=== PATIENT | female | born 1970 | race Two or more races ===

== ENCOUNTER 2024-10-15 20:46 | Emergency (ER) | payer MEDICAID, SELFPAY ==
[2024-10-15 21:54] VITALS: BP 109/72; PULSE 98; RESP 18; TEMP 36.9; O2SAT 98
--- NOTE | 2024-10-15 22:08 | XR_ITS ---
Examination: CT abdomen and pelvis without contrast. Coronal 3-D reconstructions. Sagittal 2-D reconstructions. Date and time of exam:October 15, 2024 at 11:18 PM Indications: Abdominal pain beginning 2 months ago worse the last 2 days CTDI: vol (mGy): 8.40 DLP: (mGycm): 425 Technique: Axial images of the abdomen have been obtained, 3 mm slice thickness Intravenous contrast material has not been administered. Low dose protocols were performed. One or more of the following dose reduction techniques were used; automated exposure control, adjustment of the mA and/or KV according to patient size, use of iterative reconstruction technique. Findings: No focal liver or splenic lesion Absent gallbladder No pancreatic or adrenal mass No renal or ureteral calculi, no hydronephrosis No pericecal inflammatory change No bowel obstruction or diverticulitis Anteverted uterus Urinary bladder intact Moderate osteopenia Impression: No renal or ureteral calculi, no hydronephrosis Absent gallbladder No CT findings of bowel obstruction appendicitis or diverticulitis
--- NOTE | 2024-10-15 22:09 | PD.EDRME ---
Rapid Medical Screening Exam RME Arrival date/time: 10/15/24 20:46 53-year-old female presents emergency department complaining of diffuse abdominal pain with nausea. Chief Complaint: Abdominal Pain Time Seen by Provider: 10/15/24 21:14 Vital signs: Vital Signs Temperature 98.5 F 10/15/24 21:54 Pulse Rate 98 10/15/24 21:54 Respiratory Rate 18 10/15/24 21:54 Blood Pressure 109/72 10/15/24 21:54 Pulse Oximetry (%) 98 10/15/24 21:54 Oxygen Delivery Method Room Air 10/15/24 21:54 Vital signs reviewed by provider: Yes
[2024-10-15 22:41] LABS: Collection Type, Urine Clean Catch
[2024-10-15] MEDS: ONDANSETRON ODT 4 MG TABRAP PO (22:43)
[2024-10-15] MEDS: KETOROLAC INJ 60 MG/2 ML VIAL 30 MG IM (22:43)
[2024-10-15 23:00] LABS: Basophils % (Auto) 0 % (0-2.5); Eosinophils # (Auto) 0.1 Thou/mm3 (0.0-0.5); Eosinophils % (Auto) 1 % (0-10); Hematocrit 38.9 % (36.0-46.0); Hemoglobin 12.9 g/dL (12.0-16.0); Immature Granulocytes % (Auto) 0 % (0-0); Immature Granulocytes Auto 0.05 Thou/mm3 (0.00-0.00); Lymphocytes # (Auto) 1.1 Thou/mm3 (1.0-4.8); Lymphocytes % (Auto) 8 % (10-50); Mean Corpuscular HGB Conc 33.2 g/dl (31.0-37.0); Mean Corpuscular Volume 85 fL (80-100); Monocytes # (Auto) 0.8 Thou/mm3 (0.0-0.8); Monocytes % (Auto) 6 % (0-12); Neutrophils # (Auto) 11.3 Thou/mm3 (1.8-7.7); Neutrophils % (Auto) 85 % (37-80); Nucleated Red Blood Cell % 0 /100 WBC (0); Platelet Count 275 Thou/mm3 (140-440); RDW Standard Deviation 42.9 fL (36.4-46.3); White Blood Count 13.3 Thou/mm3 (3.6-11.0)
[2024-10-15 23:05] LABS: Alanine Aminotransferase 33 U/L (10-49); Albumin, Serum 4.5 gm/dL (3.5-5.0); Anion Gap 11 (7-16); Aspartate Amino Transferase 68 U/L (0-34); BUN/Creatinine Ratio 25 Ratio (12-20); Bilirubin,Total 0.5 mg/dL (0.3-1.2); Blood Urea Nitrogen 20 mg/dL (9-23); Calcium 9.2 mg/dL (8.3-10.6); Carbon Dioxide 27.1 mMol/L (20.0-31.0); Chloride 100 mMol/L (98-107); Creatinine (Component) 0.8 mg/dL (0.6-1.3); Glucose 230 mg/dL (74-106); Osmolality,Calculated 285 (275-295); Potassium 3.7 mMol/L (3.4-5.1); Sodium 138 mMol/L (136-145); Total Protein 7.4 gm/dL (5.7-8.2); eGFR > 60 See Note
[2024-10-15 23:06] LABS: Albumin/Globulin Ratio 1.6 (1.2-2.2); Calcium (Corrected) 9.2 mg/dL (8.5-10.1); Globulin 2.9 gm/dL (2.3-3.5); Lipase 38 U/L (12-53)
[2024-10-15 23:07] LABS: Bacteria,Urine Rare; Bilirubin,Urine Negative (Negative); Blood,Urine Negative (Negative); Clarity,Urine Clear (Clear/Hazy); Color,Urine Lt-Yellow (Lt Yel-Yel); Culture Indicated,Urine Not Indicated; Glucose, Urine 4+ (Negative); Ketones,Urine 1+ (Negative); Leukocyte Esterase,Urine Positive (Negative); Nitrite,Urine Negative (Negative); Protein,Urine Negative (Neg - Trace); RBC,Urine 4 /hpf (0-3); Specific Gravity,Urine 1.036 (1.001-1.035); Squamous Epithelial Cell,Urine < 1 /hpf (0-5); WBC,Urine 8 /hpf (0-5)
[2024-10-15 23:20] LABS: Alkaline Phosphatase 142 U/L (46-116)
--- NOTE | 2024-10-15 23:57 | EDNOTE_ITS ---
<Statement entered by Lisa Kim MD - 10/16/24 02:17> As co-signing physician, I was present and available for consult prn. I concur with the plan and care as documented by the midlevel provider. ED Abdominal Pain RME/HPI General Chief Complaint: Abdominal Pain Stated complaint: UPPER ABDOMINAL PAIN Time seen by provider: 10/15/24 21:14 Arrival date/time: 10/15/24 20:46 53-year-old female past medical history of cholecystectomy presents emergency department complaining of diffuse abdominal pain with nausea that is been ongoing for 2 months. Patient denies any fever, chills, vomiting, diarrhea, or any other associated symptom. Limitations: no limitations RME / HPI RME / HPI narrative: 10/15/24 20:46 53-year-old female presents emergency department complaining of diffuse a bdominal pain with nausea. Related Data Home Medications ?Medication ?Instructions ?Recorded ?Confirmed Levothyroxine * (SYNTHROID *) 100 mcg PO ACBR THYROID #0 tabs 05/03/15 metformin 850 mg tablet 850 mg PO BID DIABETES #0 ta bs 05/03/15 (Glucophage) Previous Rx's ?Medication ?Instructions ?Recorded Hydrocodone/Acetaminophen * (NORCO 1 tab PO Q6H PRN pa in #15 tabs 10/09/15 5/325 *) lisinopril 5 mg tablet 5 mg PO QDAY #30 tabs cyclobenzaprine 10 mg tablet 10 mg PO Q8H muscle pain #20 tabs 10/08/22 ibuprofen 600 mg tablet 600 mg PO Q6H PRN pain #30 t abs 10/08/22 lidocaine 5 % topical patch 1 patch topical QDAY PRN p ain #15 10/08/22 ea albuterol sulfate 90 mcg/actuation 2 puff inhalation Q 6H PRN 06/23/23 aerosol inhaler (Ventolin HFA) shortness of breath or wheezing #8.5 grams amoxicillin 875 mg-potassium 1 tab PO Q12H #14 tabs clavulanate 125 mg tablet ferrous sulfate 325 mg (65 mg 325 mg PO QDAY #30 tabs 06/23/23 iron) tablet loratadine 10 mg tablet 10 mg PO QDAY #30 tabs 06/23 promethazine-DM 6.25 mg-15 mg/5 mL 5 ml PO Q6H PRN cou gh #118 mL 06/23/23 oral syrup ibuprofen 600 mg tablet 600 mg PO Q8H PRN pain #20 t abs 10/15/24 ondansetron 4 mg disintegrating 4 mg PO Q8H PRN nausea and 10/15/24 tablet vomiting #10 tabs cephalexin 500 mg capsule 500 mg PO BID 5 days #10 cap s 10/16/24 Allergies Allergy/AdvReac Type Severity Reaction Status Date / Time No Known Allergies Allergy Verified 06/23/23 14:42 Review of Systems Review of Systems Systems Reviewed: All systems reviewed, normal except as documented Constitutional Constitutional: Reports system reviewed and no additional complaints, except as documented, Denies body ache(s), Denies chills and Denies fever(s) Eyes Eyes: Reports system reviewed and no additional complaints, except as documented and Denies change in vision ENT Ears, Nose, Mouth, and Throat: Reports system reviewed and no additional complaints, except as documented, Denies disequilibrium, Denies dizziness, Denies sore throat and Denies vertigo Cardiovascular Cardiovascular: Reports system reviewed and no additional complaints, except as documented, Denies chest pain and Denies dyspnea Respiratory Respiratory: Reports system reviewed and no additional complaints, except as d ocumented, Denies chest congestion, Denies cough and Denies dyspnea Gastrointestinal Gastrointestinal: Reports system reviewed and no additional complaints, except as documented, Reports abdominal pain, Reports nausea and Denies vomiting Musculoskeletal Musculoskeletal: Reports system reviewed and no additional complaints, except as documented, Denies abnormal gait and Denies arthralgias Integumentary/Breasts Skin/Breast: Reports system reviewed and no additional complaints, except as documented, Denies erythema, Denies rash and Denies wounds Neurologic Neurologic: Reports system reviewed and no additional complaints, except as documented, Denies abnormal gait, Denies disequilibrium, Denies dizziness and Denies vertigo Past Medical History Past Medical History CARDIAC: Positive Hypertension ENDOCRINE: Positive Diabetes Mellitus Type 2 and Hypothyroidism Social History SMOKING STATUS: Never smoker SUBSTANCE USE: does not use ED Exam General Limitations: Present no limitations General appearance: Present alert and in no apparent distress Head Head exam: Present atraumatic Eye Eye exam: Present normal appearance, PERRL and EOMI ENT ENT exam: Present normal exam, normal oropharynx and mucous membranes moist Neck Neck exam: Present normal inspection, full ROM and trachea midline Chest Chest inspection: Present normal inspection and symmetric chest wall rise Respiratory Respiratory exam: Present normal lung sounds bilaterally Cardiovascular Cardiovascular exam: Present regular rate, normal rhythm and normal heart sounds Abdominal Exam Abdominal exam: Present soft and normal bowel sounds; Absent Tatum's sign or tenderness at McBurney's Point Extremities Exam Extremities exam: Present normal inspection and full ROM Back Exam Back exam: Present normal inspection and full ROM Neurological Exam Neurological exam: Present alert, oriented X3 and CN II-XII intact Psychiatric Psychiatric exam: Present normal affect and normal mood Skin Skin exam: Present warm, dry, intact and normal color Course Quality Measures none Orders Category Date Time Status CT abdomen pelvis wo con Stat Exams 10/15/24 22:08 Completed CBC Stat Lab 10/15/24 22:21 Completed CMP [Comprehensive Metabolic Panel] Stat Lab 10/15/24 22:21 Completed Lipase Stat Lab 10/15/24 22:21 Completed Urinalysis, C/S if Indicated Stat Lab 10/15/24 22:30 Completed Ketorolac Inj [Toradol Inj] Med 10/15/24 22:09 Discontinued 30 mg IM X1 ONE Ondansetron Odt [Zofran Odt] Med 10/15/24 22:09 Discontinued 4 mg PO X1 ONE cefTRIAXone [Rocephin] 1,000 mg Med 10/15/24 23:57 Discontinued Lidocaine 1% 20 ml [Xylocaine 1% 20 ML] 2.1 ml IM X1 Vital Signs Vital signs: Vital Signs Temperature 98.5 F 10/15/24 21:54 Pulse Rate 98 10/15/24 21:54 Respiratory Rate 18 10/15/24 21:54 Blood Pressure 109/72 10/15/24 21:54 Pulse Oximetry (%) 98 10/15/24 21:54 Oxygen Delivery Method Room Air 10/15/24 21:54 98% room air within normal limits Abdominal Pain MDM MDM Narrative MDM Narrative:: 53-year-old female past medical history of cholecystectomy presents emergency department complaining of diffuse abdominal pain with nausea that is been ongoing for 2 months. Patient denies any fever, chills, vomiting, diarrhea, or any other associated symptom. CBC mild leukocytosis 13.3. CMP was unremarkable other than mild elevation of AST 68 and alkaline phos 142 with normal lipase. Urinalysis positive for leukocytes, WBCs, and RBCs. No costovertebral tenderness. CT abdomen pelvis was unremarkable. Patient reports significant improvement in pain after given pain medication. Patient did not have any episodes of vomiting. Patient treated for UTI with antibiotics. Patient stable for discharge instructed to have close follow-up with primary care provider return immediately to emergency department for any worsening symptoms or as needed. Patient data External records reviewed:: [facility] previous records Clinical information provided by:: patient Social determinants that could affect healthcare access:: none Patient has the following chronic illnesses:: See chart How is presenting disease/condition affected by chronic disease/condition?: uneffected by Evaluation data The following diagnostics were reviewed and interpreted by me:: lab results and radiology exam(s) Lab and/or radiology exams considered but not ordered:: Ordered Interpretation Summary: Interpreted by me Medications / Prescriptions Medications or Prescriptions considered but not ordered:: Ordered Medication administrations:: Medication Administration History Discontinued Medications Ceftriaxone Sodium 1,000 mg/ (Lidocaine HCl 2.1 ml) 0 mg IM X1 ONE Stop: 10/15/24 23:58 Last Admin: 10/16/24 00:07 Dose: 1,000 mg Documented By: AYE Comments: 2.1 ml lidocaine Ketorolac Tromethamine (Ketorolac Inj 60 Mg/2 Ml Vial) 30 mg IM X1 ONE Stop: 10/15/24 22:10 Last Admin: 10/15/24 22:43 Dose: 30 mg Documented By: AYE Ondansetron HCl (Ondansetron Odt 4 Mg Tabrap) 4 mg PO X1 ONE; Protocol Stop: 10/15/24 22:10 Last Admin: 10/15/24 22:43 Dose: 4 mg Documented By: AYE Given Consultations Consultation(s) initiated? (list below): No Diagnosis Differential diagnosis abdominal pain: abdominal pain, acute appendicitis, calculus of kidney, constipation, diverticulitis, endometriosis, gastroenteritis, pancreatitis and small bowel obstruction Most likely diagnosis given after review of the tests above:: UTI Admission Indicated Admission indicated?: not indicated Admission Request Was there a request for admission?: No Disposition Plan Disposition Plan: Discharge Discharge Attestation Discharge Attestation: The patient and all family members were given an opportunity to ask questions and understood the discharge instructions. Discharge instructions specifically effects, indications for sooner follow up or return to the emergency department, and the expected course of current diagnosis. Patient condition: Stable Discharge Plan Plan Patient Disposition: HOME (Self Care) Disposition Comment: Stable Prescriptions/Referrals Prescriptions/Med Rec: New ibuprofen 600 mg tablet 600 mg PO Q8H PRN (Reason: pain) Qty: 20 0RF ondansetron 4 mg tablet,disintegrating 4 mg PO Q8H PRN (Reason: nausea and vomiting) Qty: 10 0RF cephalexin 500 mg capsule 500 mg PO BID 5 Days Qty: 10 0RF No Action metformin [Glucophage] 850 MG tablet 850 mg PO BID Qty: 0 Levothyroxine * (SYNTHROID *) 100 MCG tablet 100 mcg PO ACBR Qty: 0 Hydrocodone/Acetaminophen * (NORCO 5/325 *) 1 TAB tablet 1 tab PO Q6H PRN (Reason: pain) Qty: 15 0RF lisinopril 5 MG tablet 5 mg PO QDAY Qty: 30 0RF ibuprofen 600 mg tablet 600 mg PO Q6H PRN (Reason: pain) Qty: 30 0RF lidocaine 5 % adhesive patch,medicated 1 patch topical QDAY PRN (Reason: pain) Qty: 15 0RF Rx Instructions: leave on most painful area for up to 12 hrs cyclobenzaprine 10 mg tablet 10 mg PO Q8H Qty: 20 0RF amoxicillin-pot clavulanate 875-125 mg tablet 1 tab PO Q12H Qty: 14 0RF promethazine-DM 6.25-15 mg/5 mL syrup 5 ml PO Q6H PRN (Reason: cough) Qty: 118 0RF albuterol sulfate [Ventolin HFA] 90 mcg/actuation HFA aerosol inhaler 2 puff inhalation Q6H PRN (Reason: shortness of breath or wheezing) Qty: 8.5 0RF loratadine 10 mg tablet 10 mg PO QDAY Qty: 30 0RF ferrous sulfate 325 mg (65 mg iron) tablet 325 mg PO QDAY Qty: 30 0RF Referrals: Prabhu Morin MD [Primary Care Provider] - In 1 week Problem List Clinical Impression: UTI (urinary tract infection) Patient/Caregiver Discharge Instructions Discharge Activity: activity as tolerated Education Materials: ED CYSTIT[place] Female Adult Additional Instructions: Drink plenty of fluids and stay hydrated. Take ibuprofen as needed for pain. Take antibiotics as prescribed. Take Zofran as needed for any episodes of nausea or vomiting. Close follow-up with primary care provider in 2 to 3 days. Return to emergency department if you develop any fevers, worsening pain, worsening symptoms or as needed. Print Language: Dominican Stand Alone Forms: Glenda Award Info., Patient Portal Info Letter PA/COMPUTER SUPPORT SPECIALIST Supervising Physician PA/COMPUTER SUPPORT SPECIALIST Supervising Physician: Dr. Kim
[2024-10-16] MEDS: cefTRIAXone 1,000 MG, LIDOCAINE 1% 20 ML 2.1 ML IM (00:07)
== END 2024-10-16 00:31 | disposition home or self-care (01) ==
PROVIDERS: Emergency Provider Emergency Medicine; PCP Family Medicine
DX: N39.0 Urinary tract infection, site not specified (principal); Z90.49 Acquired absence of other specified parts of digestive tract
CPT/HCPCS: 36415; 74176; 80053; 81001; 83690; 85025; 96372; 99284; J0696; J1885; J3490; Q0162